=== PATIENT | female | born 1985 | race Caucasian/White ===

== ENCOUNTER 2018-03-22 12:33 | Emergency (ER) | payer BC ==
[~2018-03-22] VITALS: Ht 144.8 cm; Wt 95.3 kg
--- OUTSIDE RECORDS SUMMARY | 2018-03-22 12:36 | XMS REPORT ---
Author Author Claudia Yusuf Organization [employer] Address Unknown Phone Unavailable Care Team Providers Care Php Software Engineer Name Role Phone Claudia Yusuf CP Unavailable Allergies, Adverse Reactions, Alerts Substance Reaction Event Type N.K.D.A. Info Not Available Non Drug Allergy Problems Problem Type Condition Code Onset Dates Condition Status Problem Breast pain, left N64.4 Active Problem History of nephrolithiasis Z87.442 Active Problem Right leg pain M79.604 Active Assessment Chest wall pain R07.89 Active Problem Chest wall pain R07.89 Active Problem Mild depression F32.0 Active Medications Medication Code System Code Instructions Start Date End Date Status Dosage Cyclobenzaprine HCl NDC 67433058621 10 mg Orally Q8 PRN June 26, 2017 July 03, 2017 Active 1 tablet as needed Naproxen NDC 11616469723 500 mg Orally every 12 hrs PRN June 26, 2017 July 11, 2017 Active 1 tablet with food or milk as needed Ibuprofen NDC 0 300 MG Orally every 6 hrs Active 1 as needed Naproxen NDC 30356819506 500 mg Orally every 12 hrs PRN Active 1 tablet as needed Vital Signs Date/Time: June 26, 2017 BMI 30.27 Index Weight 205 lbs Height 69 in Cardiac Monitoring Heart Rate 76 /min Blood Pressure Diastolic 80 mm Hg Blood Pressure Systolic 120 mm Hg Results Name Result Date Reference Range Unit Abnormality Flag DECADRON 1MGx4 Summary Purpose eClinicalWorks Submission
--- OUTSIDE RECORDS SUMMARY | 2018-03-22 12:36 | XMS REPORT ---
Author Author Chantal Pierre [facility] e[employer] Address Unknown Phone Unavailable Care Team Providers Care Cargo Agent Name Role Phone Chantal Pierre Unavailable Encounters Encounter Location Date Unknown [facility] September 02, 2015 Cancel Appointment Request [facility] September 12, 2015 Problems Problem Type Condition ICD-9 Code Onset Dates Condition Status Problem Breast pain, left N64.4 Active Problem Right leg pain M79.604 Active Problem Chest wall pain R07.89 Active Problem History of nephrolithiasis Z87.442 Active Problem Mild depression F32.0 Active Social History Social History Element Qualifiers Date Reported Ethnicity . Status , Is [place]rit[place] island[place] your primary language? Yes August 30, 2015 Tobacco Use: . Are you a: never smoker August 30, 2015 Marital Status: . August 30, 2015 Do you drink alcohol? . Status: No August 30, 2015 Summary Purpose eClinicalWorks Submission
--- OUTSIDE RECORDS SUMMARY | 2018-03-22 12:36 | XMS REPORT ---
Author Author Chantal Pierre Organization [employer] Address Unknown Phone Unavailable Care Team Providers Care Sister Superior Name Role Phone Chantal Pierre CP Unavailable Encounters Encounter Location Date Unknown [facility] September 02, 2015 Problems Problem Type Condition ICD-9 Code Onset Dates Condition Status Problem Breast pain, left N64.4 Active Problem Right leg pain M79.604 Active Problem Chest wall pain R07.89 Active Problem History of nephrolithiasis Z87.442 Active Problem Mild depression F32.0 Active Medications Medication Code System Code Instructions Start Date End Date Status Dosage Amoxicillin MEDISPAN [address]-88 500 mg Orally every 8 hours September 02, 2015 September 09, 2015 Active 1 tablet Social History Social History Element Qualifiers Date Reported Ethnicity . Status , Is sami your primary language? Yes August 30, 2015 Tobacco Use: . Are you a: never smoker August 30, 2015 Marital Status: . August 30, 2015 Do you drink alcohol? . Status: No August 30, 2015 Summary Purpose eClinicalWorks Submission
--- OUTSIDE RECORDS SUMMARY | 2018-03-22 12:36 | XMS REPORT ---
Author Author Radah Paige [facility] e[employer] Address Unknown Phone Unavailable Care Team Providers Care Orthotic Fitter Name Role Phone Radha Paige CP Unavailable Allergies, Adverse Reactions, Alerts Substance Reaction Event Type N.K.D.A. Info Not Available Non Drug Allergy Problems Problem Type Condition Code Onset Dates Condition Status Assessment Primary osteoarthritis of right knee M17.11 Active Problem Mild depression F32.0 Active Problem Right leg pain M79.604 Active Problem Primary osteoarthritis of right knee M17.11 Active Problem Chest wall pain R07.89 Active Problem Breast pain, left N64.4 Active Problem History of nephrolithiasis Z87.442 Active Medications Medication Code System Code Instructions Start Date End Date Status Dosage Meloxicam [facility] 44077410384 15 MG Orally Once a day prn Jan 23, 2018 Mar 24, 2018 Active 1 tablet Vital Signs Date/Time: Feb 07, 2018 BMI 30.71 Index Weight 208 lbs Height 69 in Temperature 98.1 F Cardiac Monitoring Heart Rate 63 /min Blood Pressure Diastolic 62 mm Hg Blood Pressure Systolic 122 mm Hg Results No Known Results Summary Purpose eClinicalWorks Submission
--- OUTSIDE RECORDS SUMMARY | 2018-03-22 12:36 | XMS REPORT ---
Author Author Chantal Pierre [facility] eClinicalWorks Address Unknown Phone Unavailable Care Team Providers Care Reducing System Operator Name Role Phone Chantal Pierre Unavailable Encounters Encounter Location Date Unknown [facility] September 02, 2015 Cancel Appointment Request [facility] September 12, 2015 Reschedule Appointment Request [facility] September 12, 2015 Problems Problem Type Condition ICD-9 Code Onset Dates Condition Status Problem Breast pain, left N64.4 Active Problem Right leg pain M79.604 Active Problem Chest wall pain R07.89 Active Problem History of nephrolithiasis Z87.442 Active Problem Mild depression F32.0 Active Social History Social History Element Qualifiers Date Reported Ethnicity . Status , Is omani your primary language? Yes August 30, 2015 Tobacco Use: . Are you a: never smoker August 30, 2015 Marital Status: . August 30, 2015 Do you drink alcohol? . Status: No August 30, 2015 Summary Purpose eClinicalWorks Submission
--- OUTSIDE RECORDS SUMMARY | 2018-03-22 12:36 | XMS REPORT | Continuity of Care Document ---
Author Author [facility] Interface Address Unknown Phone Unavailable Problems Problem Status Onset Date Classification Date Reported Comments Source Primary osteoarthritis of right knee Active Diagnosis 02/12/2018 [facility] Mild depression Active Problem 02/12/2018 [facility] Right leg pain Active Problem 02/12/2018 [facility] Chest wall pain Active Problem 02/12/2018 [facility] Breast pain, left Active Problem 02/12/2018 [facility] History of nephrolithiasis Active Problem 02/12/2018 [facility] Urinary urgency Active Diagnosis 01/29/2018 [facility] Medications Medication Details Route Status Patient Instructions Ordering Provider Order Date Source Meloxicam 1 tablet Orally Active 15 MG Orally Once a day prn Niels Moreira 01/23/2018 [facility] Cyclobenzaprine HCl 1 tablet as needed Orally Active 10 mg Orally Q8 PRN Paramjit 06/26/2017 [facility] Naproxen 1 tablet with food or milk as needed Orally Active 500 mg Orally every 12 hrs PRN Paramjit 06/26/2017 [facility] Amoxicillin 1 tablet Orally Active 500 mg Orally every 8 hours Ghebranious 09/02/2015 [facility] Ibuprofen 1 as needed Orally Active 300 MG Orally every 6 hrs Niels Moreira [facility] Naproxen 1 tablet as needed Orally Active 500 mg Orally every 12 hrs PRN Niels Moreira [facility] Allergies, Adverse Reactions, Alerts Substance Category Reaction Severity Reaction type Status Date Reported Comments Source N.K.D.A. Adverse Reaction Info Not Available Adverse Reaction Active 02/07/2018 [facility] Immunizations Immunization Date Given Site Status Last Updated Comments Source Results Order Name Results Value Reference Range Date Interpretation Comments Source Vital Signs Vital Sign Value Date Comments Source Weight 208 02/07/2018 [facility] Height 69 02/07/2018 [facility] Temperature Oral (F) 98.1 F 02/07/2018 [facility] Heart Rate 63 02/07/2018 [facility] Diastolic (mm Hg) 62 02/07/2018 [facility] Systolic (mm Hg) 122 02/07/2018 [facility] Weight 210 01/23/2018 [facility] Height 69 01/23/2018 [facility] Temperature Oral (F) 98.1 F 01/23/2018 [facility] Heart Rate 58 01/23/2018 [facility] Diastolic (mm Hg) 88 01/23/2018 [facility] Systolic (mm Hg) 122 01/23/2018 [facility] Weight 205 06/26/2017 [facility] Height 69 06/26/2017 [facility] Heart Rate 76 06/26/2017 [facility] Diastolic (mm Hg) 80 06/26/2017 [facility] Systolic (mm Hg) 120 06/26/2017 [facility] Encounters Location Location Details Encounter Type Encounter Number Reason For Visit Attending Provider ADM Date DC Date Status Source [facility] Unknown [id number] 09/02/2015 09/02/2015 [facility] Unknown [id number] 09/02/2015 09/02/2015 [facility] Unknown [id number] 09/02/2015 09/02/2015 [facility] Cancel Appointment Request [id number] 09/12/2015 09/12/2015 [facility] Reschedule Appointment Request [id number] 09/12/2015 09/12/2015 [facility] Cancel Appointment Request [id number] 09/12/2015 09/12/2015 [facility] Procedures Procedure Code Date Perfomer Comments Source
--- OUTSIDE RECORDS SUMMARY | 2018-03-22 12:36 | XMS REPORT ---
Author Author Radha Paige [facility] eClinicalWorks Address Unknown Phone Unavailable Care Team Providers Care Computer Information Systems Instructor Name Role Phone [facility] Moreira Radha CP Unavailable Allergies, Adverse Reactions, Alerts Substance Reaction Event Type N.K.D.A. Info Not Available Non Drug Allergy Problems Problem Type Condition Code Onset Dates Condition Status Problem Breast pain, left N64.4 Active Problem History of nephrolithiasis Z87.442 Active Problem Right leg pain M79.604 Active Assessment Right leg pain M79.604 Active Assessment Urinary urgency R39.15 Active Problem Chest wall pain R07.89 Active Problem Mild depression F32.0 Active Medications Medication Code System Code Instructions Start Date End Date Status Dosage Naproxen NDC 10024304843 500 mg Orally every 12 hrs PRN Inactive 1 tablet as needed Ibuprofen NDC 0 300 MG Orally every 6 hrs Inactive 1 as needed Meloxicam NDC 16412211369 15 MG Orally Once a day prn Jan 23, 2018 Mar 24, 2018 Active 1 tablet Vital Signs Date/Time: Jan 23, 2018 BMI 31.01 Index Weight 210 lbs Height 69 in Temperature 98.1 F Cardiac Monitoring Heart Rate 58 /min Blood Pressure Diastolic 88 mm Hg Blood Pressure Systolic 122 mm Hg Results Name Result Date Reference Range Unit Abnormality Flag Urinalysis, Routine ----Urobilinogen,Semi-Qn 0.2 96747697 0.2-1.0 mg/dL ----Bilirubin Negative [id number] Negative ----Urine-Color Yellow [id number] Yellow ----Appearance Clear [id number] Clear ----WBC Esterase Negative 04133383 Negative ----Protein Negative [id number] Negative/Trace ----Glucose Negative 82893971 Negative ----Ketones Negative 39165609 Negative ----Specific [place] 1.010 20180123 1.005-1.030 ----Occult Blood Negative 17271901 Negative ----Microscopic Examination Comment [id number] ----pH 7.5 82500748 5.0-7.5 ----Nitrite, Urine Negative 20180123 Negative Knee 3 views - Right Xray Urine Culture, Routine ----Result 1 No growth [id number] ----Urine Culture, Routine Final report [id number] Summary Purpose eClinicalWorks Submission
[2018-03-22] MEDS ORDERED: KETOROLAC TROMETHAMINE 60 MG/2 ML VIAL IM ONE (13:00)
--- NOTE | 2018-03-22 13:45 | Diagnostic Imaging Report ---
EXAMINATION: CHEST 2 VIEWS INDICATION: ^left anterior-superior localized reproducible pain ^[id number] ^1316 COMPARISON: None FINDINGS: PA and lateral views TUBES and LINES: None. LUNGS: Lungs are not well inflated. Lungs are clear. There is no evidence of pneumonia or pulmonary edema. PLEURA: No pleural effusion or pneumothorax. HEART AND MEDIASTINUM: The cardiomediastinal silhouette is unremarkable. BONES AND SOFT TISSUES: No acute osseous lesion. Soft tissues are unremarkable. UPPER ABDOMEN: No free air under the diaphragm. IMPRESSION: No acute thoracic abnormality. Signed by: Dr. Gasper Luong M.D. on 03/22/2018 1:42 PM
[2018-03-22 14:06] VITALS: BP 120/74
== END 2018-03-22 14:15 | disposition home or self-care (01) ==
LOC: ER 12:33
DX: R07.89 Other chest pain (principal); S29.011A Strain of muscle and tendon of front wall of thorax, initial encounter
CPT/HCPCS: 71046; 93005; 96372; 99283; J1885